=== PATIENT | male | born 1945 | race Native Hawaiian/Other Pacific Islander ===

== ENCOUNTER 2020-11-21 08:24 | Outpatient (CLI) | payer OTHER | END 2020-11-21 20:39 | disposition home or self-care (01) | LOC: US 08:24 | PROVIDERS: ATTEND Internal Medicine Cardiovascular Disease | DX: R09.89 Other specified symptoms and signs involving the circulatory and respiratory systems (principal) ==

== ENCOUNTER 2021-09-18 13:54 | Outpatient (CLI) | payer OTHER ==
[2021-09-18 14:31] LABS: POTASSIUM 3.9 mmol/L (3.6-5.2)
== END 2021-09-18 19:41 | disposition home or self-care (01) ==
LOC: LABW 13:54
PROVIDERS: ATTEND Internal Medicine Cardiovascular Disease
DX: R52 Pain, unspecified (principal); R06.09 Other forms of dyspnea
CPT/HCPCS: 36415; 80048; 83880; 86141

== ENCOUNTER 2022-09-17 06:25 | Outpatient (CLI) | payer OTHER ==
[2022-09-17 09:55] LABS: POTASSIUM 4.4 mmol/L (3.6-5.2)
== END 2022-09-17 19:17 | disposition home or self-care (01) ==
LOC: LAB 06:25
PROVIDERS: ATTEND Nurse Practitioner Family
DX: I12.9 Hypertensive chronic kidney disease with stage 1 through stage 4 chronic kidney disease, or unspecified chronic kidney disease (principal); N18.31 Chronic kidney disease, stage 3a; E10.3399 Type 1 diabetes mellitus with moderate nonproliferative diabetic retinopathy without macular edema, unspecified eye; I25.10 Atherosclerotic heart disease of native coronary artery without angina pectoris; E78.2 Mixed hyperlipidemia; M51.36 Other intervertebral disc degeneration, lumbar region; G47.33 Obstructive sleep apnea (adult) (pediatric); I71.40 Abdominal aortic aneurysm, without rupture, unspecified
CPT/HCPCS: 36415; 80053; 81002; 82043; 82570; 83883; 84165; 86037; 86038; 86803

== ENCOUNTER 2023-04-14 08:20 | Outpatient (CLI) | payer OTHER ==
[2023-04-14 09:58] LABS: POTASSIUM 3.8 mmol/L (3.6-5.2)
[2023-04-14 10:45] LABS: PLATELET COUNT 201 K/uL (142-355)
== END 2023-04-14 19:50 | disposition home or self-care (01) ==
LOC: LABW 08:20 → US 08:20 → LABW 19:50
PROVIDERS: ATTEND Student in an Organized Health Care Education/Training Program
DX: Z01.89 Encounter for other specified special examinations (principal); N28.89 Other specified disorders of kidney and ureter; D63.1 Anemia in chronic kidney disease; E11.9 Type 2 diabetes mellitus without complications; E79.0 Hyperuricemia without signs of inflammatory arthritis and tophaceous disease; R80.8 Other proteinuria; N25.81 Secondary hyperparathyroidism of renal origin; N18.9 Chronic kidney disease, unspecified; I12.9 Hypertensive chronic kidney disease with stage 1 through stage 4 chronic kidney disease, or unspecified chronic kidney disease
CPT/HCPCS: 36415; 80053; 80074; 82306; 82550; 83036; 83516; 83735; 83970; 84100; 84165; 84550; 85027; 86037; 86160; 86592; 86701; 86702; 87389